=== PATIENT | female | born 1970 | race African-American/Black ===

== ENCOUNTER 2016-11-27 17:06 | Emergency (ER) | payer MEDICAID ==
[~2016-11-27] VITALS: Ht 165.1 cm; Wt 99.8 kg
[~2016-11-27 17:06] MED LIST: COUMADIN1 MG ORAL; HYDROCODON-ACE1 EA15 ORAL; LOSARTAN-HCTZ1 EAC2 ORAL; LOVENOX10 M3 SUBQ; NORVASC5 MG ORAL; OMEPRAZOLE20 M2 ORAL; VITAMIN D1000 UNI1 ORAL; ZOFRAN ODT4 MG ORAL
--- NOTE | 2016-11-27 17:28 | Emergency Room Report ---
History of Present Illness General Chief Complaint: Chest Pain Source: Patient Present Illness HPI 46YOF walk-in with 2 days "heavy" left sided chest pain. "Feels like my PE." Been compliant with lovenox injections since May 2016. Not on Coumadin. Known Protein C/s deficiencies with family with same. Denies fever/chills, cough, SOB, abd pain, nausea/vomiting, urinary complaints. Does not have IVC filter. CT May 2016: "Right main, right middle and lower lobe pulmonary emboli are seen. Subsegmental left lower lobe pulmonary emboli are also noted." Allergies: Coded Allergies: PENICILLINS (Verified Allergy, Unknown, 06/11/16) Patient History Past Medical History: HTN, other - PE, Protein C/s deficiency Past Surgical History: none Pertinent Family History: none Social History: Denies: alcohol use, drug use, smoking Now: No Immunizations: UTD Reviewed Nursing Documentation: PMH: Agreed, PSxH: Agreed Nursing Documentation-PMH Hx Cardiac Problems: Yes Hx Hypertension: Yes - Pulmonary embolism, Protein-S deficiency Hx Cancer: No Hx Gastrointestinal Problems: Yes Hx Neurological Problems: No Review of Systems All Other Systems: negative except mentioned in HPI Physical Exam Vital Signs Date Time Temp Pulse Resp B/P Pulse Ox O2 Delivery O2 Flow Rate FiO2 11/27/16 17:13 97.7 65 16 96/72 97 Room Air Sp02 EP Interpretation: reviewed, abnormal General Appearance: normal inspection, well appearing, no apparent distress, alert, GCS 15, non-toxic Head: normocephalic, atraumatic Eyes: bilateral eye EOMI, bilateral eye PERRL ENT: normal ENT inspection, hearing grossly normal, normal voice Neck: normal inspection, full range of motion, supple, no bony tend Respiratory: normal inspection, lungs clear, normal breath sounds, no respiratory distress, no retraction, no accessory muscle use, no wheezing, speaking full sentences Cardiovascular #1: regular rate, rhythm, no edema Gastrointestinal: normal inspection, normal bowel sounds, non tender, soft, no guarding, no hernia Genitourinary: no CVA tenderness Musculoskeletal: normal inspection, back normal, normal range of motion, Rigoberto' s Sign negative Neurologic: normal inspection, alert, oriented x3, responsive, 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 No right heart strain - Troponin 0. - PTT normal. Questionable compliance with Lovenox - CTA Chest pending at time of signout to Dr Dinh to followup at 7pm EKG Diagnostic Results Rate: normal, other - TWI in Lead 3 Rhythm: NSR ST Segments: no acute changes ASA given to the pt in ED: No Rhythm Strip Diag. Results EP Interpretation: yes Rate: 70 Rhythm: NSR, no PVC's, no ectopy Chest X-Ray Diagnostic Results EP Interpretation: Yes Findings: no consolidation, no effusion, no pneumothorax, no acute cardiopulmonary disease Number of Views: 1 Last Vital Signs Date Time Temp Pulse Resp B/P Pulse Ox O2 Delivery O2 Flow Rate FiO2 11/27/16 17:13 97.7 65 16 96/72 97 Room Air Status: improved Disposition: ADMITTED INPATIENT Condition: Serious JAXSON GIBSON M.D. Nov 27, 2016 17:28
[2016-11-27 17:52] LABS: BASOPHILS % (AUTO) 1.5 % (0.0-2.0); LYMPHOCYTES % (AUTO) 42.5 % (20.0-45.0); MEAN CORPUSCULAR HEMOGLOBIN 31.9 PG (27.0-31.0); MEAN CORPUSCULAR HGB CONC 35.8 G/DL (32.0-36.0); MEAN CORPUSCULAR VOLUME 89 FL (80-99); MEAN PLATELET VOLUME 5.3 FL (6.5-10.1); MONOCYTES % (AUTO) 3.6 % (1.0-10.0); NEUTROPHILS % (AUTO) 48.4 % (45.0-75.0); PLATELET COUNT 367 K/UL (150-450); RED BLOOD COUNT 3.91 M/UL (4.20-5.40); RED CELL DISTRIBUTION WIDTH 14.2 % (11.6-14.8)
[2016-11-27 18:02] LABS: ALANINE AMINOTRANSFERASE 11 U/L (3-33); ALBUMIN/GLOBULIN RATIO 1.2 (1.0-2.7); ANION GAP 13 (5-15); ASPARTATE AMINO TRANSFERASE 11 U/L (5-40); CALCIUM 9.3 mg/dL (8.6-10.2); CARBON DIOXIDE 24 mEQ/L (20-30); CHLORIDE 102 mEQ/L (98-107); GLOMERULAR FILTRATION RATE > 60 mL/min (>60); HEMOLYSIS 9; POTASSIUM 3.5 mEQ/L (3.4-4.9); SODIUM 139 mEQ/L (135-145); TROPONIN I < 0.30 ng/mL (<=0.30)
[2016-11-27 18:05] LABS: PROTHROMBIN TIME 10.1 SEC (9.30-11.50)
[2016-11-27 18:07] VITALS: BP 98/73
[2016-11-27 18:12] LABS: CKMB < 1.5 ng/mL (< 3.8)
[2016-11-27 19:17] VITALS: BP 111/71
[2016-11-27] MEDS ORDERED: NORCO 5-325 TA1 EACH ORAL (19:51)
[2016-11-27] MEDS ORDERED: Norco 5mg/325mg tab ORAL ONE (20:00)
[2016-11-27 20:03] VITALS: BP 104/76
[2016-11-27 20:04] VITALS: BP 104/76
--- NOTE | 2016-11-28 09:51 | Diagnostic Imaging Report ---
Indication: Chest pain Technique: Continuous helical transaxial imaging of the chest was obtained from the thoracic inlet to the upper abdomen during rapid intravenous contrast administration. Arterial phase of enhancement obtained. Coronal 2-D reformats were also obtained and maximum intensity projection images in multiple planes. Study obtained in a Siemens sensation [address] Total Dose length Product (DLP): [address] Dose Index Volume (CTDIvol): 12.6x2, 50.5, 30.9 mGy Comparison: None Findings: There is no evidence of pulmonary embolus, aortic dissection or aneurysm. The heart is unremarkable. Minimal pleural-based densities noted at both lung bases likely atelectasis. Visualized upper abdomen is unremarkable. Impression: Negative CTA chest The CT scanner at [facility] is accredited by the [employer] [place] [employer] and the scans are performed using dose optimization techniques as appropriate to a performed exam including Automatic Exposure control.
--- NOTE | 2016-11-28 11:45 | Diagnostic Imaging Report ---
Indication: Chest Pain Comparison: 06/18/16 A single view chest radiograph was obtained. Findings: No definite infiltrate or pulmonary vascular congestion identified. Lung volumes are low. The heart is enlarged. The aorta is mildly enlarged consistent with atherosclerotic vascular disease. The bones are osteopenic. Impression: No acute disease
--- NOTE | 2016-11-29 07:29 | Cardiology Report ---
APPROVED REPORT EKG Measurement Heart [id number] Normal sinus rhythm Cannot rule out Anterior infarct, age undetermined Abnormal ECG
== END 2016-11-27 20:05 | disposition home or self-care (01) ==
LOC: EMR 17:30 → EDBEDREQ 19:36 → CANBEDREQ 20:03 → EMR 20:05
DX: R07.1 Chest pain on breathing (principal); Z86.711 Personal history of pulmonary embolism; D68.59 Other primary thrombophilia; Z88.0 Allergy status to penicillin; I10 Essential (primary) hypertension
CPT/HCPCS: 36415; 71010; 71275; 80053; 80300; 81025; 82550; 82553; 84484; 85025; 85379; 85610; 85730; 93005; 99283; Q9967

== ENCOUNTER 2017-04-09 15:05 | Emergency (ER) | payer MEDICAID ==
[~2017-04-09] VITALS: Ht 165.1 cm; Wt 102.1 kg
[~2017-04-09 15:05] MED LIST changes: +NORCO 5-325 TA1 EACH ORAL
--- NOTE | 2017-04-09 15:25 | Emergency Room Report ---
History of Present Illness General Chief Complaint: Chest Pain Source: Patient Present Illness HPI 46YOF with 3 days of left sided upper chest pain, non-radiating. Worse with movement. Sharp. Reproducible. /10. Took Tylenol No cough, fever/chills, abd pain, nausea/vomiting. History of PE. On Lovenox. CT Chest negative in November 2016 Has been compliant with daily Lovenox injections - "missed 2 days" Had ECHO last month. Hasnt got results. Has cardiology followup in 5 days. Thinks she has mitral valve prolapse. Not on beta-ricci. Takes 3x meds for HTN Allergies: Coded Allergies: PENICILLINS (Verified Allergy, Unknown, 06/11/16) Patient History Past Medical History: HTN, other - PE Past Surgical History: none Pertinent Family History: none Social History: Denies: smoking, alcohol use, drug use Now: No Immunizations: UTD Reviewed Nursing Documentation: PMH: Agreed, PSxH: Agreed Nursing Documentation-PMH Past Medical History: No History, Except For Hx Cardiac Problems: Yes Hx Hypertension: Yes - Pulmonary embolism, Protein-S deficiency Hx Cancer: No Hx Gastrointestinal Problems: Yes Hx Neurological Problems: No Review of Systems All Other Systems: negative except mentioned in HPI Physical Exam Vital Signs Date Time Temp Pulse Resp B/P (MAP) Pulse Ox O2 Delivery O2 Flow Rate FiO2 04/09/17 15:11 99.0 79 20 103/71 100 Room Air Sp02 EP Interpretation: reviewed, normal General Appearance: normal inspection, well appearing, no apparent distress, alert Head: normocephalic, atraumatic Eyes: bilateral eye PERRL, bilateral eye EOMI ENT: normal ENT inspection, hearing grossly normal, normal voice Neck: normal inspection, full range of motion, supple, no bony tend Respiratory: normal inspection, lungs clear, normal breath sounds, no respiratory distress, no retraction, no wheezing, other - Chest pain reproducible mid/left sternum, chest symmetrical Cardiovascular #1: regular rate, rhythm, no edema Gastrointestinal: normal inspection, normal bowel sounds, non tender, soft, no guarding, no hernia Genitourinary: no CVA tenderness Musculoskeletal: normal inspection, back normal, normal range of motion, non- tender, no calf tenderness, pelvis stable, Rigoberto's Sign negative Neurologic: normal inspection, alert, responsive, speech normal Psychiatric: normal inspection, judgement/insight normal, mood/affect normal Skin: normal inspection, normal color, no rash Medical Decision Making Diagnostic Impression: Primary Impression: Chest pain Qualified Codes: R07.9 - Chest pain, unspecified ER Course Chest pain for 3 days VSS. Afebrile Not tachycardic or hypoxic ECG is NSR. No ischemia. No S1Q3T3 or right heart strain Labs: No leuks. H&H stable. Troponin <0.056. D-dimer is 900 - likely d/t known Protein S deficiency, chronic hypercoaguable state. Doubt PE given compliance with lovenox, pain is very reproducible and worse with movement, she is not hypoxic, she is well appearing, and not tachycardia/tachypnea. Has Cardiology followup in 5 days - possibly symptom related to MVP DC home EKG Diagnostic Results Rate: normal Rhythm: NSR ST Segments: no acute changes ASA given to the pt in ED: No Rhythm Strip Diag. Results EP Interpretation: yes Rate: 63 Rhythm: NSR, no ectopy Last Vital Signs Date Time Temp Pulse Resp B/P (MAP) Pulse Ox O2 Delivery O2 Flow Rate FiO2 04/09/17 15:11 99.0 79 20 103/71 100 Room Air Status: improved Disposition: HOME, SELF-CARE JAXSON GIBSON M.D. Apr 09, 2017 15:25
[2017-04-09 15:30] VITALS: BP 97/70
[2017-04-09] MEDS ORDERED: oxyCODONE HCL/Acetaminophen 5/325mg ORAL ONE (15:30)
[2017-04-09 16:07] LABS: BASOPHILS % (AUTO) 1.1 % (0.0-2.0); EOSINOPHILS % (AUTO) 2.9 % (0.0-3.0); LYMPHOCYTES % (AUTO) 43.1 % (20.0-45.0); MEAN CORPUSCULAR HEMOGLOBIN 30.5 PG (27.0-31.0); MEAN CORPUSCULAR HGB CONC 32.8 G/DL (32.0-36.0); MEAN CORPUSCULAR VOLUME 93 FL (80-99); MEAN PLATELET VOLUME 5.2 FL (6.5-10.1); MONOCYTES % (AUTO) 2.9 % (1.0-10.0); PLATELET COUNT 317 K/UL (150-450); RED BLOOD COUNT 4.18 M/UL (4.20-5.40); RED CELL DISTRIBUTION WIDTH 14.2 % (11.6-14.8); WHITE BLOOD COUNT 8.1 K/UL (4.8-10.8)
[2017-04-09 16:29] LABS: ALANINE AMINOTRANSFERASE 20 U/L (12-78); ANION GAP 10 (5-15); ASPARTATE AMINO TRANSFERASE 13 U/L (15-37); CALCIUM 9.2 MG/DL (8.5-10.1); CARBON DIOXIDE 27 MMOL/L (21-32); CHLORIDE 108 MMOL/L (98-107); CKMB 0.5 NG/ML (0.0-3.6); CREATININE 0.7 MG/DL (0.55-1.30); GLOMERULAR FILTRATION RATE > 60 mL/min (>60); POTASSIUM 3.8 MMOL/L (3.5-5.1); SODIUM 145 MMOL/L (136-145); TOTAL PROTEIN 6.3 G/DL (6.4-8.2)
[2017-04-09 16:32] VITALS: BP 112/77
[2017-04-09 17:56] VITALS: BP 118/70
--- NOTE | 2017-04-18 08:23 | Cardiology Report ---
APPROVED REPORT EKG Measurement Heart [id number] RI [id number] Normal sinus rhythm Low voltage QRS Cannot rule out Anterior infarct, age undetermined Abnormal ECG
== END 2017-04-09 17:58 | disposition home or self-care (01) ==
LOC: EMR 15:48
DX: R07.89 Other chest pain (principal); I10 Essential (primary) hypertension; Z86.711 Personal history of pulmonary embolism; Z88.0 Allergy status to penicillin
CPT/HCPCS: 36415; 80053; 82550; 82553; 84484; 85025; 85379; 93005; 99283

== ENCOUNTER 2018-10-11 19:18 | Emergency (ER) | payer MEDICAID ==
[~2018-10-11] VITALS: Ht 165.1 cm; Wt 97.5 kg
[2018-10-11 19:30] VITALS: BP 124/84
--- NOTE | 2018-10-11 19:30 | NUR ---
ED Nurse Note: Patient walked into ED c/o left calk swelling, patient states that it first started last night at around 2200, states that she does have a history of DVT. patient is alert and oriented x4, ambulatory with a steady gait, VSS. patient rates her pain a 7/10 pain.
[2018-10-11] MEDS: Acetaminophen 500mg (ES) tab ORAL ONE (20:03)
--- NOTE | 2018-10-11 20:05 | Emergency Room Report ---
History of Present Illness General Chief Complaint: Edema Source: Patient (Jonathan Dinh MD) Present Illness HPI Patient presents with left calf pain and swelling. She has history of DVT and pulmonary embolus. She's on Lovenox at home. She denies any chest pain or coughing up any blood. She's also had some vaginal bleeding. Not excessive or with clots, but unusual for her. Protein S deficiency. Failed Elaquis. Clinical Education Consultant placed on Lovenox. H/O anemia. Her last period before this recent bleeding was normal. No suprapubic pain or back pain. Patient has a goiter but states that her thyroid function tests are normal. No fevers, chills, palpitations, nausea, vomiting, diarrhea, dysuria, abdominal pain, shortness of breath, depression, visual changes, headache. H/O mitral valve prolapse. (Jonathan Dinh MD) Allergies: Coded Allergies: PENICILLINS (Verified Allergy, Unknown, 06/11/16) Patient History Past Medical History: see triage record Social History: Denies: smoking, alcohol use, drug use Social History Narrative single from home Last Menstrual Period: 09/30/18 Now: No Reviewed Nursing Documentation: PMH: Agreed; PSxH: Agreed (Jonathan Dinh MD) Nursing Documentation-PMH Hx Cardiac Problems: Yes - GERD, MITRAL VALVE PROLAPSE Hx Hypertension: Yes - Pulmonary embolism, Protein-S deficiency Hx Cancer: No Hx Gastrointestinal Problems: Yes Hx Neurological Problems: No (Jonathan Dinh MD) Review of Systems All Other Systems: negative except mentioned in HPI (Jonathan Dinh MD) Physical Exam Vital Signs Date Time Temp Pulse Resp B/P (MAP) Pulse Ox O2 Delivery O2 Flow Rate FiO2 10/11/18 19:27 98.4 98 12 124/84 97 Room Air Sp02 EP Interpretation: reviewed, normal General Appearance: well appearing, no apparent distress, GCS 15 Head: normocephalic, atraumatic Eyes: bilateral eye normal inspection, bilateral eye PERRL ENT: moist mucus membranes Neck: supple, other - goiter Respiratory: lungs clear, normal breath sounds Cardiovascular #1: regular rate, rhythm, other - click, edema - L leg Cardiovascular #2: 2+ radial (R) Gastrointestinal: normal inspection, normal bowel sounds, non tender, no mass, non-distended Genitourinary: no CVA tenderness, deferred - for ultrasound Musculoskeletal: back normal, gait/station normal, normal range of motion, calf tenderness, swelling - L leg Neurologic: alert, oriented x3, grossly normal Psychiatric: mood/affect normal Skin: normal inspection, warm/dry, pallor - minimal (Jonathan Dinh MD) Medical Decision Making Diagnostic Impression: Primary Impression: DVT (deep venous thrombosis) Qualified Codes: I82.432 - Acute embolism and thrombosis of left popliteal vein Additional Impressions: lovenox failure DUB (dysfunctional uterine bleeding) Fibroids Protein S deficiency Hypokalemia ER Course Patient presents with left calf tenderness and leg swelling with history of DVT. protein S deficiency and on Lovenox. Differential includes DVT, edema post DVT, calf strain amongst others. Exam is against pulmonary embolus at this time. Evaluation with EKG, chest x-ray and labs. She also complains about dysfunctional uterine bleeding and ultrasound is ordered. Also venous plethysmography is ordered for the left leg. Patient is treated with Tylenol. EKG without injury or strain. Chest x-ray no infiltrates. CBC with mild leukocytosis. CMP unremarkable except for low potassium. Activated PTT is normal. Urinalysis unremarkable. Potassium was given for low potassium orally. Venous plethysmography positive for acute DVT from the popliteal down to the calf. Pelvic ultrasound positive for fibroids. As DVT happened on Lovenox, needs IV heparin. Heparin ordered. Consideration for increased risk of bleeding with fibroids however risk of propagation of DVT greater risk. Patient signed out to Dr. Hough pending admission. Laboratory Tests Test 10/11/18 19:45 10/11/18 22:30 White Blood Count 11.2 K/UL (4.8-10.8) H Red Blood Count 4.06 M/UL (4.20-5.40) L Hemoglobin 12.2 G/DL (12.0-16.0) Hematocrit 36.4 % (37.0-47.0) L Mean Corpuscular Volume 90 FL (80-99) Mean Corpuscular Hemoglobin 30.0 PG (27.0-31.0) Mean Corpuscular Hemoglobin Concent 33.5 G/DL (32.0-36.0) Red Cell Distribution Width 12.9 % (11.6-14.8) Platelet Count 291 K/UL (150-450) Mean Platelet Volume 5.1 FL (6.5-10.1) L Neutrophils (%) (Auto) 65.3 % (45.0-75.0) Lymphocytes (%) (Auto) 25.7 % (20.0-45.0) Monocytes (%) (Auto) 5.9 % (1.0-10.0) Eosinophils (%) (Auto) 1.9 % (0.0-3.0) Basophils (%) (Auto) 1.2 % (0.0-2.0) Prothrombin Time 11.1 SEC (9.30-11.50) Prothrombin Time INR 1.1 (0.9-1.1) PTT 29 SEC (23-33) Sodium Level 142 MMOL/L (136-145) Potassium Level 2.9 MMOL/L (3.5-5.1) L Chloride Level 103 MMOL/L (98-107) Carbon Dioxide Level 28 MMOL/L (21-32) Anion Gap 11 mmol/L (5-15) Blood Urea Nitrogen 16 mg/dL (7-18) Creatinine 0.8 MG/DL (0.55-1.30) Estimate Glomerular Filtration Rate > 60 mL/min (>60) Glucose Level 81 MG/DL (74-106) Calcium Level 9.1 MG/DL (8.5-10.1) Total Bilirubin 0.4 MG/DL (0.2-1.0) Aspartate Amino Transferase (AST) 15 U/L (15-37) Alanine Aminotransferase (ALT) 24 U/L (12-78) Alkaline Phosphatase 68 U/L (46-116) Total Creatine Kinase 148 U/L (26-308) Troponin I 0.007 ng/mL (0.000-0.056) Pro-B-Type Natriuretic Peptide 29 pg/mL (0-125) Total Protein 7.2 G/DL (6.4-8.2) Albumin 3.1 G/DL (3.4-5.0) L Globulin 4.1 g/dL Albumin/Globulin Ratio 0.8 (1.0-2.7) L Urine Color Pale yellow Urine Appearance Clear Urine pH 7 (4.5-8.0) Urine Specific [place] 1.005 (1.005-1.035) Urine Protein 2+ (NEGATIVE) H Urine Glucose (UA) Negative (NEGATIVE) Urine Ketones Negative (NEGATIVE) Urine Blood 5+ (NEGATIVE) H Urine Nitrite Negative (NEGATIVE) Urine Bilirubin Negative (NEGATIVE) Urine Urobilinogen Normal MG/DL (0.0-1.0) Urine Leukocyte Esterase 2+ (NEGATIVE) H Urine RBC 2-4 /HPF (0 - 2) H Urine WBC 2-4 /HPF (0 - 2) Urine Squamous Epithelial Cells Few /LPF (NONE/OCC) Urine Bacteria Few /HPF (NONE) Urine Yeast Few /HPF (NONE) H Urine HCG, Qualitative Negative (NEGATIVE) (Jonathan Dinh MD) ER Course Patient signout to me. She is pending admission versus transfer. I discussed the case with Dr. Kessler who said that her for transfer to [facility]. Patient is stable. (Carlton Hough MD) EKG Diagnostic Results Rate: normal Rhythm: NSR ST Segments: no acute changes (Jonathan Dinh MD) Rhythm Strip Diag. Results EP Interpretation: yes Rhythm: NSR, no PVC's, no ectopy (Jonathan Dinh MD) Chest X-Ray Diagnostic Results Chest X-Ray Diagnostic Results : Chest X-Ray Ordered: Yes # of Views/Limited/Complete: 1 View Indication: Other EP Interpretation: Yes Interpretation: no consolidation, no effusion, no pneumothorax Impression: No acute disease Electronically Signed by: Electronically signed by Jonathan Dinh MD (Jonathan Dinh MD) CT/MRI/US Diagnostic Results CT/MRI/US Diagnostic Results #1: Imaging Test Ordered: pelvic u/s Impression Multiple fibroids CT/MRI/US Diagnostic Results #2: Imaging Test Ordered: Venous duplex left leg Impression Clot from popliteal extending downwards (Jonathan Dinh MD) Last Vital Signs Date Time Temp Pulse Resp B/P (MAP) Pulse Ox O2 Delivery O2 Flow Rate FiO2 10/11/18 22:56 98.4 80 12 132/80 97 Room Air Status: improved (Jonathan Dinh MD) Disposition: XFER SHT-TRM HOSP Condition: Serious - but stable for transfer Jonathan Dinh MD Oct 11, 2018 20:05 Carlton Hough MD Oct 11, 2018 23:43
--- NOTE | 2018-10-11 20:13 | NUR ---
ED Nurse Note: Patient went down to ultrasound
[2018-10-11 20:28] LABS: ANION GAP 11 mmol/L (5-15); BASOPHILS % (AUTO) 1.2 % (0.0-2.0); BLOOD UREA NITROGEN 16 mg/dL (7-18); CALCIUM 9.1 MG/DL (8.5-10.1); CARBON DIOXIDE 28 MMOL/L (21-32); CHLORIDE 103 MMOL/L (98-107); CREATININE 0.8 MG/DL (0.55-1.30); EOSINOPHILS % (AUTO) 1.9 % (0.0-3.0); HEMATOCRIT 36.4 % (37.0-47.0); HEMOGLOBIN 12.2 G/DL (12.0-16.0); LYMPHOCYTES % (AUTO) 25.7 % (20.0-45.0); MEAN CORPUSCULAR VOLUME 90 FL (80-99); MONOCYTES % (AUTO) 5.9 % (1.0-10.0); NEUTROPHILS % (AUTO) 65.3 % (45.0-75.0); PLATELET COUNT 291 K/UL (150-450); POTASSIUM 2.9 MMOL/L (3.5-5.1); RED BLOOD COUNT 4.06 M/UL (4.20-5.40); RED CELL DISTRIBUTION WIDTH 12.9 % (11.6-14.8); SODIUM 142 MMOL/L (136-145); WHITE BLOOD COUNT 11.2 K/UL (4.8-10.8)
[2018-10-11 20:32] LABS: INR 1.1 (0.9-1.1)
[2018-10-11 20:40] LABS: ALANINE AMINOTRANSFERASE 24 U/L (12-78); ALBUMIN 3.1 G/DL (3.4-5.0); ALBUMIN/GLOBULIN RATIO 0.8 (1.0-2.7); ALKALINE PHOSPHATASE 68 U/L (46-116); ASPARTATE AMINO TRANSFERASE 15 U/L (15-37); BILIRUBIN,TOTAL 0.4 MG/DL (0.2-1.0); CREATINE KINASE 148 U/L (26-308)
--- NOTE | 2018-10-11 21:42 | NUR ---
ED Nurse Note: Patient has came back from ultrasound
[2018-10-11] MEDS ORDERED: Zolpidem 5mg tab ORAL PRN (22:00)
[2018-10-11] MEDS ORDERED: Morphine Sulfate 2mg/ml Inj(IV/IM USE ONLY) IVP PRN (22:00)
[2018-10-11] MEDS ORDERED: Mylanta II UD 30ml ORAL PRN (22:00)
[2018-10-11] MEDS: Heparin 25,000u/D5W 500ml 500 ML IV SCH ×2 (22:00→22:26)
[2018-10-11] MEDS ORDERED: LORazepam Inj 2mg/ml 1ml IV PRN (22:00)
[2018-10-11] MEDS ORDERED: Miralax 17gm pkt ORAL PRN (22:00)
[2018-10-11] MEDS: Heparin 5000 units/ml inj IV ONE (22:24)
[2018-10-11 22:56] VITALS: BP 132/80
[2018-10-11 22:59] LABS: APPEARANCE,URINE CLEAR; BILIRUBIN, URINE NEGATIVE (NEGATIVE); COLOR,URINE PALE YELLOW; GLUCOSE, URINE (UA) NEGATIVE (NEGATIVE); KETONES,URINE NEGATIVE (NEGATIVE); LEUKOCYTE ESTERASE ,URINE 2+ (NEGATIVE); NITRITE,URINE NEGATIVE (NEGATIVE); PH,URINE 7 (4.5-8.0); PROTEIN,URINE 2+ (NEGATIVE); UROBILINOGEN,URINE NORMAL MG/DL (0.0-1.0)
--- NOTE | 2018-10-11 23:30 | NUR ---
ED Nurse Note: Patient reports of no distress at this time
[2018-10-12 00:59] VITALS: BP 112/83
--- NOTE | 2018-10-12 02:34 | NUR ---
ED Nurse Note: Per Dr. Hough, pt is ok to have Heparin gtt stopped for transport.
[2018-10-12 02:41] VITALS: BP 124/84
--- NOTE | 2018-10-12 02:42 | NUR ---
ED Nurse Note: Patient is being transferred to [facility], at this time patient reports no distress. Patient is accompanied by BLS personnel.
[2018-10-12 02:48] VITALS: BP 124/84
--- NOTE | 2018-10-12 08:45 | Diagnostic Imaging Report ---
Indication:Leg pain and swelling Technique: Grayscale and duplex Doppler imaging of the veins in left lower extremity performed in real time utilizing compression and augmentation. Comparison: None Findings: Duplex Doppler interrogation of the veins in left lower extremity is performed from the common femoral vein to the popliteal vein. Left calf veins also assessed. There is echogenic thrombus with lack of compressibility in the left popliteal vein and left posterior tibial vein and anterior tibial vein. Is portions of the left common femoral and femoral veins are without evidence of thrombus. There is normal compression and color flow in these veins. Note that the right lower extremity was not imaged. IMPRESSION: Left lower extremity ultrasound demonstrates: Evidence of DVT in the left popliteal vein and calf veins. This corresponds with the preliminary report by the overnight radiologist. Positive findings were communicated to the treating ER physician, as documented in the preliminary report generated by the cardiovascular technologist.
--- NOTE | 2018-10-12 09:10 | Diagnostic Imaging Report ---
Indication: Pelvic pain and vaginal bleeding. Reported negative test Technique: Transabdominal and endovaginal pelvic ultrasound was performed. Findings: Imaged portions of the urinary bladder are unremarkable in appearance. Multiple heterogeneous masses are noted within the myometrium. These may represent fibroids. The largest measures approximately 5.3 cm. Some anechoic structures are noted within the cervix which may represent nabothian cysts. The endometrium is thickened and heterogeneous measuring proximally 1.8 mm in diameter. The right ovary is only visualized on transabdominal scan. He measures approximately 3.6 x 2.3 cm. Doppler flow in the right ovary is demonstrated. The the left ovary measures approximately 2.7 x 3 x 1.2 cm. Blood flow in the left ovary is documented. IMPRESSION: Multiple heterogeneous uterine masses most likely representing fibroids. Largest measures up to 5.3 cm. Heterogeneous and thickened endometrium. Thickening is greater than expected for physiologic thickening. The possibility of an endometrial lesion cannot be excluded, especially given history of abnormal bleeding. 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 Doppler flow noted in the bilateral ovaries. This is discrepant from the preliminary interpretation of the overnight radiologist. The patient has been transferred to [facility] in the interim. Per [facility] emergency room, patient under care of Dr. Kline at [facility]. Report discrepancy discussed with the patient's nurse at [facility] morning of 10/12/2018 at [phone]. Attempting to contact the covering physician.
--- NOTE | 2018-10-12 12:46 | Diagnostic Imaging Report ---
Indication: Status post pain Technique: XRAY Chest 1v Comparison: 11/27/2016 Findings: Heart size and mediastinal contours are within normal limits for AP technique. There is no focal consolidation, pneumothorax or pleural effusion. Osseous structures demonstrate no acute abnormality. Impression: No radiographic evidence of acute cardiopulmonary disease.
--- NOTE | 2018-10-12 13:30 | Cardiology Report ---
APPROVED REPORT EKG Measurement Heart [id number] [place] [id number] Normal sinus rhythm Normal ECG
== END 2018-10-12 02:49 | disposition short-term general hospital (02) ==
LOC: EMR 20:00
DX: I82.432 Acute embolism and thrombosis of left popliteal vein (principal); I82.4Z2 Acute embolism and thrombosis of unspecified deep veins of left distal lower extremity; K21.9 Gastro-esophageal reflux disease without esophagitis; D68.59 Other primary thrombophilia; Z86.711 Personal history of pulmonary embolism; Z79.01 Long term (current) use of anticoagulants; Z88.0 Allergy status to penicillin
CPT/HCPCS: 36415; 71045; 76830; 76856; 80053; 81003; 81025; 82550; 83880; 84484; 85025; 85610; 85730; 87086; 93005; 93970; 99285; J1644; J8499

== ENCOUNTER 2019-08-26 15:30 | Emergency (ER) | payer MEDICAID ==
[~2019-08-26] VITALS: Ht 165.1 cm; Wt 99.8 kg
[2019-08-26 15:40] VITALS: BP 105/78
--- NOTE | 2019-08-26 15:40 | NUR ---
ED Nurse Note: Pt ambulated to ED d/t LT leg pain s/p DVT. Per triage, pt was diagnosed on at [facility]. Pt is AOx4, VSS, on RA. Placed on bed and gown; will continue to monitor.
[2019-08-26] MEDS ORDERED: Morphine Sulfate 2mg/ml Inj(IV/IM USE ONLY) IVP ONE (16:15)
[2019-08-26] MEDS ORDERED: Heparin 25,000u/D5W 500ml 500 ML IV SCH (16:30)
[2019-08-26] MEDS ORDERED: Heparin 5000 units/ml inj IV ONE (16:30)
--- NOTE | 2019-08-26 16:50 | Emergency Room Report ---
History of Present Illness General Chief Complaint: General Complaint Source: Patient Present Illness HPI 49-year-old female with history of protein S deficiency as well as multiple DVTs currently under the care of casino investigator and taking 100 mg of IM Lovenox twice daily here complaining of worsening leg pain x2 days. Patient reports that she was at [facility] this past and was diagnosed with a new onset left leg however was discharged and told to go home and her daily dose of Lovenox. Started worse this morning patient contacted her casino investigator patient emergency room to get admitted drip. Denies any chest pain, shortness of breath, palpitation, headache or dizziness. Denies any pleuritic chest pain. Reports that she had embolism in 1999 does not have any active symptoms are now. Rates the pain in the left lower extremity 10 out of 10 without radiation. Denies tingling and numbness. Denies at this time. Allergies: Coded Allergies: PENICILLINS (Verified Allergy, Unknown, 06/11/16) Patient History Past Medical History: see triage record Past Surgical History: none Pertinent Family History: none Now: No Immunizations: UTD Reviewed Nursing Documentation: PMH: Agreed; PSxH: Agreed Nursing Documentation-PMH Past Medical History: No History, Except For Hx Hypertension: Yes - GERD Hx Cancer: No Hx Gastrointestinal Problems: Yes Hx Neurological Problems: No Review of Systems All Other Systems: negative except mentioned in HPI Physical Exam Vital Signs Date Time Temp Pulse Resp B/P (MAP) Pulse Ox O2 Delivery O2 Flow Rate FiO2 08/26/19 15:33 98.6 93 16 105/78 (87) 100 Room Air Sp02 EP Interpretation: reviewed, normal General Appearance: no apparent distress, alert, GCS 15, non-toxic Head: normocephalic, atraumatic Eyes: bilateral eye normal inspection, bilateral eye PERRL ENT: hearing grossly normal, normal pharynx, no angioedema, normal voice Neck: full range of motion, supple, thyroid normal, no meningismus, supple/symm /no masses Respiratory: chest non-tender, lungs clear, normal breath sounds, no rhonchi, no retraction, no wheezing, speaking full sentences Cardiovascular #1: regular rate, rhythm, no edema, no murmur Cardiovascular #2: 2+ carotid (R), 2+ carotid (L), 2+ radial (R), 2+ radial (L) , 2+ femoral (R), 2+ femoral (L), 2+ dorsalis pedis (R), 2+ dorsalis pedis (L) Gastrointestinal: normal bowel sounds, non tender, soft, non-distended, no guarding, no rebound Genitourinary: normal inspection, no CVA tenderness Musculoskeletal: back normal, no calf tenderness, pelvis stable, gait/station normal, Rigoberto's Sign negative Neurologic: alert, motor strength/tone normal, oriented x3, sensory intact, responsive, speech normal Psychiatric: judgement/insight normal, memory normal, mood/affect normal, no suicidal/homicidal ideation Skin: no rash, normal color Lymphatic: no adenopathy Medical Decision Making PA Attestation All my diagnosis and treatment plans were reviewed ad discussed with my supervising physician Dr. Byers Diagnostic Impression: Primary Impression: DVT (deep venous thrombosis) ER Course 49-year-old female with history of protein S deficiency as well as multiple DVTs currently under the care of casino investigator and taking 100 mg of IM Lovenox twice daily here complaining of worsening leg pain x2 days. Patient reports that she was at [facility] this past and was diagnosed with a new onset left leg however was discharged and told to go home and her daily dose of Lovenox. Started worse this morning patient contacted her casino investigator patient emergency room to get admitted drip. Denies any chest pain, shortness of breath, palpitation, headache or dizziness. Denies any pleuritic chest pain. Reports that she had embolism in 1999 does not have any active symptoms are now. Rates the pain in the left lower extremity 10 out of 10 without radiation. Denies tingling and numbness. Denies at this time. Ddx considered but are not limited to : Cellulitis, DVT, pulmonary embolism, superficial infection, abscess Vital signs: are WNL, pt. is afebrile H&PE are most consistent with: DVT ORDERS: CBC, CMP, UA, PT and PTT, type and screen, troponin, EKG, chest x-ray, venous duplex ultrasound of left lower extremity ED INTERVENTIONS: Heparin drip, morphine, Zofran, NS bolus Patient was admitted with diagnosis of DVT to Dr. Agudelo at [facility] under supervision of Dr.: Byers pt stable at time of admission Dr. Kyler Kim, patient's casino investigator was contacted by my supervising physician Dr. Byers and patient to be admitted under heparin drip for transition from Lovenox to the newer agents. EKG Diagnostic Results Rate: normal Rhythm: NSR ST Segments: no acute changes Other Impression No acute ST changes Chest X-Ray Diagnostic Results Chest X-Ray Diagnostic Results : Chest X-Ray Ordered: Yes # of Views/Limited/Complete: 1 View Indication: Other EP Interpretation: Yes PA Xray: Interpretation reviewed, by supervising MD, and agrees with findings. Interpretation: no consolidation, no effusion, no pneumothorax Impression: No acute disease Electronically Signed by: Mikael Salazar PA-C Last Vital Signs Date Time Temp Pulse Resp B/P (MAP) Pulse Ox O2 Delivery O2 Flow Rate FiO2 // 15:33 98.6 93 16 105/78 (87) 100 Room Air Status: improved Disposition: XFER SHT-TRM HOSP Condition: Stable Referrals: NON PHYSICIAN (PCP) Mikael Cuadra Aug 26, 2019 16:50
--- NOTE | 2019-08-26 16:53 | NUR ---
ED Nurse Note: X-ray at bedside.
[2019-08-26 16:59] LABS: BASOPHILS % (AUTO) 1.6 % (0.0-2.0); EOSINOPHILS % (AUTO) 5.2 % (0.0-3.0); HEMOGLOBIN 11.9 G/DL (12.0-16.0); LYMPHOCYTES % (AUTO) 42.8 % (20.0-45.0); MEAN CORPUSCULAR VOLUME 87 FL (80-99); NEUTROPHILS % (AUTO) 44.4 % (45.0-75.0); PLATELET COUNT 437 K/UL (150-450); RED BLOOD COUNT 4.25 M/UL (4.20-5.40); RED CELL DISTRIBUTION WIDTH 18.7 % (11.6-14.8); WHITE BLOOD COUNT 11.8 K/UL (4.8-10.8)
--- NOTE | 2019-08-26 16:59 | Diagnostic Imaging Report ---
Indication: Left lower extremity pain and swelling. Technique: Duplex Doppler imaging performed from the left common femoral vein to the popliteal vein. FINDINGS: There is acute thrombus noted in the left superficial femoral vein and popliteal vein. There is flow in the common femoral vein. In the right leg, normal compressibility demonstrated from the common femoral vein to the popliteal vein. Respiratory phasicity and good augmentation demonstrated on waveform analysis. There is no evidence of thrombosis. IMPRESSION: Positive study showing acute thrombosis of the left femoral and popliteal vein. The emergency department physician teachers' assistant Mikael was informed at 16:35
[2019-08-26 17:05] LABS: ANION GAP 15 mmol/L (5-15); BLOOD UREA NITROGEN 8 mg/dL (7-18); CALCIUM 9.7 MG/DL (8.5-10.1); CARBON DIOXIDE 26 MMOL/L (21-32); CHLORIDE 105 MMOL/L (98-107); CREATININE 0.8 MG/DL (0.55-1.30); POTASSIUM 3.4 MMOL/L (3.5-5.1); SODIUM 145 MMOL/L (136-145)
[2019-08-26 17:17] LABS: ALANINE AMINOTRANSFERASE 24 U/L (12-78); ALBUMIN 3.1 G/DL (3.4-5.0); ALBUMIN/GLOBULIN RATIO 0.7 (1.0-2.7); ALKALINE PHOSPHATASE 73 U/L (46-116); ASPARTATE AMINO TRANSFERASE 14 U/L (15-37); BILIRUBIN,TOTAL 0.3 MG/DL (0.2-1.0)
[2019-08-26 18:42] VITALS: BP 105/75
--- NOTE | 2019-08-26 18:50 | NUR ---
ED Nurse Note: Discontinued IV heparin drip per Dr. yBers.
[2019-08-26 19:00] VITALS: BP 107/75
--- NOTE | 2019-08-26 19:27 | NUR ---
ED Nurse Note: Gave report LEANDRA Rosario
--- NOTE | 2019-08-27 12:37 | Diagnostic Imaging Report ---
Indication: Chest pain Comparison: 10/11/2018 A single view chest radiograph was obtained. Findings: Cardiomediastinal appearance is within normal limits for age. The lungs are clear. Pulmonary vascularity is appropriate. The diaphragmatic contour is smooth and costophrenic angles are sharp. No pleural effusions are identified. The bones are unremarkable. Impression: No acute findings
== END 2019-08-26 19:30 | disposition home or self-care (01) ==
LOC: EMR 15:45
DX: I82.402 Acute embolism and thrombosis of unspecified deep veins of left lower extremity (principal); I10 Essential (primary) hypertension; K21.9 Gastro-esophageal reflux disease without esophagitis; Z88.0 Allergy status to penicillin
CPT/HCPCS: 36415; 71045; 80053; 83880; 84484; 85025; 85610; 85730; 86850; 86900; 86901; 93005; 93971; 96361; 96374; 96375; J1644; J2270; J2405; J7030; Z7502; 99284

== ENCOUNTER 2019-12-19 11:46 | Inpatient (IN) | payer MEDICAID ==
[~2019-12-19] VITALS: Ht 165.1 cm; Wt 102.1 kg
[2019-12-19] MEDS ORDERED: XARELTO10 MG ORAL (11:53)
[2019-12-19] MEDS ORDERED: Omnipaque-300 100ml vial INJ ONE (12:00)
--- NOTE | 2019-12-19 12:10 | NUR ---
ED Nurse Note: Pt ambulated to ED from home d/t RT sided chest pain, non radiating, with 8/10 scale. Pt is AOx4, calm and cooperative. Per report, pt has hx of pulmonary embolism and dvt. Placed on bed and gown; hooked to bus monitor, VSS, on RA, afebrile on triage.
--- NOTE | 2019-12-19 12:11 | Emergency Room Report ---
History of Present Illness General Chief Complaint: Chest Pain Source: Patient (Jamil Maloney MD) Present Illness HPI 49-year-old female history of pulmonary embolism presents with right-sided chest pain similar to her previous pulmonary embolism, started yesterday noticed it more around 8 AM pain has been pressure-like constant no aggravating or alleviating factors severity is moderate, patient also notices some shortness of breath no dyspnea on exertion no diaphoresis no nausea no vomiting no abdominal pain patient presents for treatment (Jamil Maloney MD) Allergies: Coded Allergies: PENICILLINS (Verified Allergy, Unknown, 06/11/16) COVID-19 Screening Contact w/high risk pt: No Recent Travel to affected area: No Experienced COVID-19 symptoms?: No COVID-19 Testing performed HEALTH TYPE TECHNICIAN: No (Jamil Maloney MD) Patient History Past Medical History: see triage record Last Menstrual Period: unknown Now: No Reviewed Nursing Documentation: PMH: Agreed; PSxH: Agreed (Jamil Maloney MD) Nursing Documentation-PMH Past Medical History: No History, Except For Hx Hypertension: Yes - GERD Hx Cancer: No Hx Gastrointestinal Problems: Yes Hx Neurological Problems: No (Jamil Maloney MD) Review of Systems All Other Systems: negative except mentioned in HPI (Jamil Maloney MD) Physical Exam Vital Signs Date Time Temp Pulse Resp B/P (MAP) Pulse Ox O2 Delivery O2 Flow Rate FiO2 12/19/19 11:49 98.1 98 18 129/78 (95) 98 Room Air Sp02 EP Interpretation: reviewed, normal General Appearance: well appearing, no apparent distress, alert Head: normocephalic, atraumatic Eyes: bilateral eye PERRL, bilateral eye EOMI ENT: uvula midline, moist mucus membranes Neck: supple, thyroid normal, supple/symm/no masses Respiratory: lungs clear, no respiratory distress, no retraction, no accessory muscle use Cardiovascular #1: normal peripheral pulses, regular rate, rhythm, no edema, no gallop, no murmur Gastrointestinal: non tender, soft, no guarding, no rebound Musculoskeletal: normal inspection Neurologic: alert, oriented x3 Psychiatric: mood/affect normal Skin: no rash, warm/dry (Jamil Maloney MD) Medical Decision Making Diagnostic Impression: Primary Impression: Chest pain Qualified Codes: R07.9 - Chest pain, unspecified ER Course 49-year-old female presents with chest pain differential diagnosis includes ACS PE Chest x-ray negative, EKG negative, pending CTA patient signed out to Dr. Moscoso Laboratory Tests Test 12/19/19 12:00 White Blood Count 9.3 K/UL (4.8-10.8) Red Blood Count 4.77 M/UL (4.20-5.40) Hemoglobin 13.7 G/DL (12.0-16.0) Hematocrit 42.9 % (37.0-47.0) Mean Corpuscular Volume 90 FL (80-99) Mean Corpuscular Hemoglobin 28.8 PG (27.0-31.0) Mean Corpuscular Hemoglobin Concent 32.0 G/DL (32.0-36.0) Red Cell Distribution Width 15.8 % (11.6-14.8) H Platelet Count 399 K/UL (150-450) Mean Platelet Volume 5.8 FL (6.5-10.1) L Neutrophils (%) (Auto) 50.6 % (45.0-75.0) Lymphocytes (%) (Auto) 42.3 % (20.0-45.0) Monocytes (%) (Auto) 3.7 % (1.0-10.0) Eosinophils (%) (Auto) 2.0 % (0.0-3.0) Basophils (%) (Auto) 1.5 % (0.0-2.0) Prothrombin Time 11.7 SEC (9.30-11.50) H Prothrombin Time INR 1.1 (0.9-1.1) Activated Partial Thromboplast Time 30 SEC (23-33) Urine HCG, Qualitative Negative (NEGATIVE) Sodium Level 139 MMOL/L (136-145) Potassium Level 3.2 MMOL/L (3.5-5.1) L Chloride Level 102 MMOL/L (98-107) Carbon Dioxide Level 28 MMOL/L (21-32) Anion Gap 9 mmol/L (5-15) Blood Urea Nitrogen 10 mg/dL (7-18) Creatinine 0.8 MG/DL (0.55-1.30) Estimated Glomerular Filtration Rate > 60 mL/min (>60) Glucose Level 88 MG/DL (74-106) Calcium Level 9.3 MG/DL (8.5-10.1) Total Bilirubin 0.4 MG/DL (0.2-1.0) Aspartate Amino Transferase (AST) 17 U/L (15-37) Alanine Aminotransferase (ALT) 19 U/L (12-78) Alkaline Phosphatase 74 U/L (46-116) Troponin I 0.000 ng/mL (0.000-0.056) Pro-B-Type Natriuretic Peptide 10 pg/mL (0-125) Total Protein 7.5 G/DL (6.4-8.2) Albumin 3.2 G/DL (3.4-5.0) L Globulin 4.3 g/dL Albumin/Globulin Ratio 0.7 (1.0-2.7) L Lipase 296 U/L (73-393) Human Chorionic Gonadotropin, Quant 1 mIU/mL (1-6) (Jamil Maloney MD) ER Course Assumed care of the patient from previous provider approximately 1400 hrs. Briefly this a 49-year-old female with a past history of emboli currently on rivaroxaban presenting for right-sided chest pain and shortness of breath. At the time of signout we are awaiting CTA. Study does not show any large central emboli but cannot risk include small peripheral ones. Vital signs are stable. Labs are otherwise within normal limits including a negative troponin. Updated Dr. Magallon from [facility]. Patient will be transferred to [place] per her insurance plan. She is stable for transfer. 1800: No beds available at [place]. Patient will be admitted to our facility for ACS rule out. Admitted to panel physician, Dr. Jimenez. Aspirin, nitroglycerin, Toradol given. Laboratory Tests Test 12/19/19 12:00 White Blood Count 9.3 K/UL (4.8-10.8) Red Blood Count 4.77 M/UL (4.20-5.40) Hemoglobin 13.7 G/DL (12.0-16.0) Hematocrit 42.9 % (37.0-47.0) Mean Corpuscular Volume 90 FL (80-99) Mean Corpuscular Hemoglobin 28.8 PG (27.0-31.0) Mean Corpuscular Hemoglobin Concent 32.0 G/DL (32.0-36.0) Red Cell Distribution Width 15.8 % (11.6-14.8) H Platelet Count 399 K/UL (150-450) Mean Platelet Volume 5.8 FL (6.5-10.1) L Neutrophils (%) (Auto) 50.6 % (45.0-75.0) Lymphocytes (%) (Auto) 42.3 % (20.0-45.0) Monocytes (%) (Auto) 3.7 % (1.0-10.0) Eosinophils (%) (Auto) 2.0 % (0.0-3.0) Basophils (%) (Auto) 1.5 % (0.0-2.0) Prothrombin Time 11.7 SEC (9.30-11.50) H Prothrombin Time INR 1.1 (0.9-1.1) Activated Partial Thromboplast Time 30 SEC (23-33) Urine HCG, Qualitative Negative (NEGATIVE) Sodium Level 139 MMOL/L (136-145) Potassium Level 3.2 MMOL/L (3.5-5.1) L Chloride Level 102 MMOL/L (98-107) Carbon Dioxide Level 28 MMOL/L (21-32) Anion Gap 9 mmol/L (5-15) Blood Urea Nitrogen 10 mg/dL (7-18) Creatinine 0.8 MG/DL (0.55-1.30) Estimated Glomerular Filtration Rate > 60 mL/min (>60) Glucose Level 88 MG/DL (74-106) Calcium Level 9.3 MG/DL (8.5-10.1) Total Bilirubin 0.4 MG/DL (0.2-1.0) Aspartate Amino Transferase (AST) 17 U/L (15-37) Alanine Aminotransferase (ALT) 19 U/L (12-78) Alkaline Phosphatase 74 U/L (46-116) Troponin I 0.000 ng/mL (0.000-0.056) Pro-B-Type Natriuretic Peptide 10 pg/mL (0-125) Total Protein 7.5 G/DL (6.4-8.2) Albumin 3.2 G/DL (3.4-5.0) L Globulin 4.3 g/dL Albumin/Globulin Ratio 0.7 (1.0-2.7) L Lipase 296 U/L (73-393) Human Chorionic Gonadotropin, Quant 1 mIU/mL (1-6) (Hemant Moscoso MD) EKG Diagnostic Results EKG Time: 11:55 EP Interpretation: NSR, rate 86 QTc 461, no acute ST elevations, left axis deviation (Jamil Maloney MD) Rhythm Strip Diag. Results Rhythm Strip Time: 12:11 EP Interpretation: yes Rate: 88 Rhythm: NSR, no PVC's, no ectopy (Jamil Maloney MD) Chest X-Ray Diagnostic Results Chest X-Ray Diagnostic Results : Chest X-Ray Ordered: Yes Indication: Chest Pain EP Interpretation: Yes Interpretation: no consolidation, no effusion, no pneumothorax, no acute cardiopulmonary disease Impression: No acute disease Electronically Signed by: Jamil Maloney MD (Jamil Maloney MD) CT/MRI/US Diagnostic Results CT/MRI/US Diagnostic Results : Impression IMPRESSION: ONLY MARGINAL OPACIFICATION OF THE PULMONARY VASCULARITY. NO LARGE CENTRAL EMBOLISM IDENTIFIED BUT SMALL PERIPHERAL EMBOLI CANNOT BE EXCLUDED. Dictated By: Franco Munroe MD Electronically Signed By: Franco Munroe MD Signed Date/Time 12/19/19 9160 CC: Jamil Maloney MD (Hemant Moscoso MD) Last Vital Signs Date Time Temp Pulse Resp B/P (MAP) Pulse Ox O2 Delivery O2 Flow Rate FiO2 12/19/19 11:49 98.1 98 18 129/78 (95) 98 Room Air (Jamil Maloney MD) Disposition: ADMITTED INPATIENT Condition: Stable Jamil Maloney MD Dec 19, 2019 12:11 Hemant Moscoso MD Dec 19, 2019 15:08
--- NOTE | 2019-12-19 12:11 | NUR ---
ED Nurse Note: x-ray at bedside.
--- NOTE | 2019-12-19 12:12 | NUR ---
ED Nurse Note: per pt, chest pain is on and off started since yesterday.
[2019-12-19] MEDS ORDERED: Omnipaque 350 100ml vial INJ PRN (12:15)
[2019-12-19 12:24] VITALS: BP 129/78
[2019-12-19 12:27] LABS: BASOPHILS % (AUTO) 1.5 % (0.0-2.0); HEMATOCRIT 42.9 % (37.0-47.0); HEMOGLOBIN 13.7 G/DL (12.0-16.0); LYMPHOCYTES % (AUTO) 42.3 % (20.0-45.0); MEAN CORPUSCULAR VOLUME 90 FL (80-99); MONOCYTES % (AUTO) 3.7 % (1.0-10.0); NEUTROPHILS % (AUTO) 50.6 % (45.0-75.0); PLATELET COUNT 399 K/UL (150-450); RED BLOOD COUNT 4.77 M/UL (4.20-5.40); RED CELL DISTRIBUTION WIDTH 15.8 % (11.6-14.8); WHITE BLOOD COUNT 9.3 K/UL (4.8-10.8)
[2019-12-19 12:38] LABS: INR 1.1 (0.9-1.1)
[2019-12-19 12:39] LABS: ANION GAP 9 mmol/L (5-15); BLOOD UREA NITROGEN 10 mg/dL (7-18); CALCIUM 9.3 MG/DL (8.5-10.1); CARBON DIOXIDE 28 MMOL/L (21-32); CHLORIDE 102 MMOL/L (98-107); CREATININE 0.8 MG/DL (0.55-1.30); POTASSIUM 3.2 MMOL/L (3.5-5.1); SODIUM 139 MMOL/L (136-145)
--- NOTE | 2019-12-19 12:47 | Diagnostic Imaging Report ---
Procedure: XRAY Chest 1v Reason for study: Chest pain Comparison films: 08/26/2019. FINDINGS: A single one view chest is obtained. Vascularity is normal. The lung crockett are clear bilaterally. Cardiac and mediastinal silhouette are within normal limits. CP angles are sharp. The bony thorax appear unremarkable. IMPRESSION: NO ACUTE CARDIOPULMONARY DISEASE.
[2019-12-19 12:50] LABS: ALANINE AMINOTRANSFERASE 19 U/L (12-78); ALBUMIN 3.2 G/DL (3.4-5.0); ALBUMIN/GLOBULIN RATIO 0.7 (1.0-2.7); ALKALINE PHOSPHATASE 74 U/L (46-116); ASPARTATE AMINO TRANSFERASE 17 U/L (15-37); BILIRUBIN,TOTAL 0.4 MG/DL (0.2-1.0)
--- NOTE | 2019-12-19 13:10 | NUR ---
ED Nurse Note: pt taken to CT on stable condition.
--- NOTE | 2019-12-19 14:58 | Diagnostic Imaging Report ---
EXAM: CT CTA Chest w Contrast CLINICAL HISTORY: Chest pain and shortness of breath. TECHNIQUE: CT angiogram of the pulmonary vasculature performed with IV contrast. 2-D and 3-D reformat images obtained. All CT scans at this facility are performed using dose modulation techniques as appropriate to a performed exam including the following: automated exposure control with adjustment of the mA and/or kV according to patient size. RADIATION DOSE: CTDIvol: 63.8 mGy DLP: 428.6 mGy-cm Dose information generated by the CT scanner is available in PACS. COMPARISON: None FINDINGS: There is a marginal opacification of the pulmonary vascularity. There is no central filling defects or thrombus identified. However the subsegmental and peripheral branches are not as well opacified particularly in the lower lobes and small peripheral emboli cannot be excluded. The aorta is normal in caliber and there is no intimal flap or dissection. There is no mediastinal mass or adenopathy. There are linear atelectasis left lung base. Limited views of the upper abdomen appear unremarkable. Thyroid appears enlarged but homogeneous. IMPRESSION: ONLY MARGINAL OPACIFICATION OF THE PULMONARY VASCULARITY. NO LARGE CENTRAL EMBOLISM IDENTIFIED BUT SMALL PERIPHERAL EMBOLI CANNOT BE EXCLUDED.
[2019-12-19 15:00] VITALS: BP 102/66
--- NOTE | 2019-12-19 15:20 | NUR ---
ED Nurse Note: pt still complains of chest pain, notified ERMD.
--- NOTE | 2019-12-19 15:30 | NUR ---
ED Nurse Note: Pt resting on bed, VSS, NAD noted, offered snacks.
[2019-12-19] MEDS ORDERED: Ketorolac 30mg Inj IV ONE (15:45)
[2019-12-19 16:21] VITALS: BP 113/73
[2019-12-19 18:40] VITALS: BP 111/68
--- NOTE | 2019-12-19 19:12 | NUR ---
ED Nurse Note: hand-off given to LEANDRA Allen.
--- NOTE | 2019-12-19 19:15 | NUR ---
ED Nurse Note: Report received from BRADEN Garcia RN
[2019-12-19] MEDS ORDERED: Miralax 17gm pkt ORAL PRN (19:30)
[2019-12-19] MEDS ORDERED: Nitroglycerin Subl 0.4mg tab SL PRN (19:30)
[2019-12-19] MEDS ORDERED: Albuterol/Ipratropium 3ml neb HHN PRN (19:30)
[2019-12-19] MEDS ORDERED: Enalaprilat 2.5mg/2ml Inj IV PRN (19:30)
[2019-12-19] MEDS ORDERED: dilTIAZem HCl 25mg/5ml Inj IV PRN (19:30)
--- NOTE | 2019-12-19 20:20 | NUR ---
NURSE NOTES: Received report from ED from Joe Reyez RN. Patient was transferred to the bed in room 221-2 and safely accompanied / transferred by LEANDRA Allen. Belongings were all accounted for with RN and patient present. 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 Patient in stable condition, IV site on left antecubital 20g intact, no redness, no leaking, no tenderness, saline locked. Cardiac leads in place, equipment monitor phototypesetting working, bed in lowest and locked position, bed alarm activated, yellow socks on, call light within reach. Will continue to actively monitor.
--- NOTE | 2019-12-19 20:20 | NUR ---
TRANSFER TO FLOOR: Patient transferred to TELE at rm 221-2 via gurney with security monitor accompanied by RN and behavioral services tech. Belongings and medications given to RN on duty. Patient transferred safely and endorsed to RN.
[2019-12-19] MEDS ORDERED: Xarelto 10mg tab ORAL SCH (21:00)
--- NOTE | 2019-12-19 21:55 | NUR ---
NURSE NOTES: Patient complaining of chest pain 7/10 on a 0 - 10 scale, non-radiating, pressure pain and patient is uncomfortable. Notified Dr. Lieberman, will continue to remain with patient. Awaiting doctors orders.
--- NOTE | 2019-12-19 22:17 | NUR ---
NURSE NOTES: Dr. Lieberman responded and gave orders for morphine 2 mg IV q6hrs PRN for pain.
[2019-12-19] MEDS ORDERED: Morphine Sulfate 2mg/ml Inj(IV/IM USE ONLY) IVP PRN (22:30)
[2019-12-20] VITALS: BP 100/64
--- NOTE | 2019-12-20 00:18 | NUR ---
NURSE NOTES: Patient states, "i am comfortable and am feeling no pain at the moment."
--- NOTE | 2019-12-20 02:32 | NUR ---
NURSE NOTES: Received Dr. Lieberman's order for potassium chloride 40 mEq x1.
--- NOTE | 2019-12-20 02:46 | NUR ---
NURSE NOTES: Spoke to Windy, pharmacist at [facility]. She verified Dr. Lieberman's order for potassium replacement. Noted and will carry out.
[2019-12-20] MEDS ORDERED: Sodium Chloride for KCL Premix X 4hrs IV SCH (03:00)
[2019-12-20 04:00] VITALS: BP 97/64
--- NOTE | 2019-12-20 04:20 | NUR ---
NURSE NOTES: Patient is complaining of "unbearable pain" due to prescribed potassium 10mEq IV infusion. Stopped IV infusion and checked right 20g antecubital IV site. IV is patent, intact, flushing well, with blood return, no signs of infiltration / extravasation, no redness, no leaking. However, patient repeatedly refused despite explaining the risks and benefits of the medication.
--- NOTE | 2019-12-20 05:07 | NUR ---
NURSE NOTES: Patient continues to refuse prescribed potassium chloride IV, despite explanations of risks and benefits to the medication. Patient states that she is not able to tolerate the medication.
--- NOTE | 2019-12-20 06:30 | NUR ---
NURSE NOTES: Notified Dr. Lieberman regarding patient's refusal of the prescribed potassium IV infusion. Awaiting response. Patient in stable condition, no acute signs of distress noted.
[2019-12-20 06:37] LABS: INR 1.2 (0.9-1.1)
[2019-12-20 06:55] LABS: BASOPHILS % (AUTO) 1.2 % (0.0-2.0); EOSINOPHILS % (AUTO) 1.8 % (0.0-3.0); HEMATOCRIT 38.8 % (37.0-47.0); HEMOGLOBIN 12.4 G/DL (12.0-16.0); LYMPHOCYTES % (AUTO) 35.4 % (20.0-45.0); MEAN CORPUSCULAR VOLUME 89 FL (80-99); MONOCYTES % (AUTO) 6.4 % (1.0-10.0); NEUTROPHILS % (AUTO) 55.2 % (45.0-75.0); PLATELET COUNT 347 K/UL (150-450); RED BLOOD COUNT 4.35 M/UL (4.20-5.40); RED CELL DISTRIBUTION WIDTH 15.9 % (11.6-14.8); WHITE BLOOD COUNT 8.8 K/UL (4.8-10.8)
[2019-12-20 07:26] LABS: CHOLESTEROL 163 MG/DL (< 200); HDL CHOLESTEROL 45 MG/DL (40-60); TRIGLYCERIDES 87 MG/DL (30-150)
--- NOTE | 2019-12-20 07:45 | NUR ---
HAND-OFF: Report given to LEANDRA Quick. Plan of care endorsed. Patient in stable condition. Cardiac leads in place, nurse monitoring working, bed alarm activated, bed in lowest and locked position. Patient alert and oriented x4.
--- NOTE | 2019-12-20 07:46 | NUR ---
NURSE NOTES: Received patient in bed awake. No SOB or acute distress. IV line intact. HOB elevated. Bed locked in lowest position. Call light within reach. Patient refused potassium IV as per night RN, Dr Lieberman aware, still awaiting response. Patient requesting potassium orally. Will continue plan of care.
[2019-12-20 08:00] VITALS: BP 107/74
--- NOTE | 2019-12-20 08:53 | NUR ---
NURSE NOTES: Dr Lieberman made aware of patient's request for PO potassium, awaiting response. Addendum: 12/20/19 at 1258 by Ynes Blackwell RN Orders given for potassium PO
[2019-12-20] MEDS ORDERED: Aspirin Baby 81mg ORAL SCH (09:00)
--- NOTE | 2019-12-20 09:38 | NUR ---
CASE MANAGEMENT: INITIAL REVIEW 49YR OLD FEMALE FROM HOME CC:CHEST PAIN PMH: PULMONARY EMBOLISM SI:CHEST PAIN 98.1 83 22 102/66 98% ON RA K+3.2 ALB 3.2 PT 11.7 IS:IVF NS BOLUS X1 IV TORADOL X1 NTG Q5MIN IV ZOFRAN Q6HR/PRN XARELTO PO QHS IV MORPHINE SULFATE XRAY Chest 1v-NO ACUTE CARDIOPULMONARY DISEASE CTA Chest w Contrast-ONLY MARGINAL OPACIFICATION OF THE PULMONARY VASCULARITY. NO LARGE CENTRAL EMBOLISM IDENTIFIED BUT SMALL PERIPHERAL EMBOLI CANNOT BE EXCLUDED. \: 2E TELE UNIT PLAN: CONTINUOUS SUPERVISOR F[employer] EQU[employer]MENT MAINTENANCE ECHO CARDIOGRAM CASE MANAGEMENT: REVIEW 12/20/19 PMH: PULMONARY EMBOLISM SI:CHEST PAIN 97.7 82 18 107/74 97% ON RA PT/INR 13.5/1.2 IS:IVF NS BOLUS X1 NORVASC PO QD NTG Q5MIN IV ZOFRAN Q6HR/PRN XARELTO PO QHS IV MORPHINE SULFATE ASA PO QD \: 2E TELE UNIT PLAN: CARDIO CONSULT AND TO REVIEW
--- NOTE | 2019-12-20 09:45 | NUR ---
CASE MANAGEMENT:REVIEW 49 YR OLD FEMALE WALKED IN TO ER CC: CHEST PAIN PMH: H/O PULMONARY EMBOLI AND DVT SI: CHEST PAIN 98.1 98 18 129/78 98% ON RA TROPONIN(-) X2 K-3.2 INR=1.1 IS:1L NS BOLUS NTG SL IV TORADOL CTA CHEST CT CHEST CHEST XRAY : TO TELEMETRY UNIT IS: NORVASC PO QD ASA PO QD K-DUR PO X1 XARELTO PO QHS IV MORPHINE Q6HRS PRN DCP: FROM HOME
--- NOTE | 2019-12-20 10:38 | NUR ---
*-* INSURANCE *-* ALL CLINICALS AND REVIEWS HAVE BEEN FAXED TO: [facility] P: [phone] F: [phone] Addendum: 12/20/19 at 1039 by DEMAR DANIELLE CM AUTH#[id number]
[2019-12-20 11:40] VITALS: BP 106/76
[2019-12-20] MEDS ORDERED: Sucralfate 1gm tab ORAL SCH (13:15)
--- NOTE | 2019-12-20 13:31 | Consultation ---
History of Present Illness General Date patient seen: Dec 20, 2019 Chief Complaint: Chest Pain Present Illness HPI 49-year-old female history of Protein S deficiency, pulmonary embolism, GERD presented to ER with right-sided chest pain. The pain has been pressure-like constant no aggravating or alleviating factors severity is moderate. Her EKG didn't show any st changes and her troponin negative. A CTA of pulmonary artery ruled out large PE. Meanwhile echo is also done which is unremarkable without any sign of right sided strain. Pt take Omeprazole at home for her GERD. Allergies: Coded Allergies: PENICILLINS (Verified Allergy, Unknown, 06/11/16) Medication History Scheduled Amlodipine Besylate (Norvasc), 5 MG ORAL DAILY, (Reported) Cholecalciferol (Vitamin D3)* (Vitamin D*), 1,000 UNIT ORAL DAILY, (Reported) Losartan/Hydrochlorothiazide (Losartan-Hctz 50-12.5 Mg Tab), 1 TAB ORAL DAILY, ( Reported) Omeprazole (Omeprazole), 20 MG ORAL DAILY, (Reported) Rivaroxaban (Xarelto*), 20 MG ORAL BEDTIME, (Reported) Scheduled PRN Hydrocodone Bit/Acetaminophen 5-325* ([place] 5-325*), 1 TAB ORAL Q6H PRN for For Pain Hydrocodone/Acetaminophen 5-325* (Hydrocodone/Acetaminophen 5-325*), 1 TAB ORAL Q6H PRN for For Pain Ondansetron Odt* (Zofran Odt*), 4 MG ORAL Q6H PRN for Nausea & Vomiting Discontinued Medications Enoxaparin* (Lovenox*), 150 MG SUBQ DAILY, (Reported) Discontinued Reason: Pt stopped taking med Enoxaparin* (Lovenox*), 150 MG SUBQ DAILY, (Reported) Discontinued Reason: Pt stopped taking med Patient History Healthcare decision maker Resuscitation status Advanced Directive on File Past Medical/Surgical History Past Medical/Surgical History: (1) Protein S deficiency (2) Hypercoagulable state (3) HTN (hypertension) (4) Mitral valve prolapse Review of Systems All Other Systems: negative except mentioned in HPI Physical Exam General Appearance: WD/WN, no apparent distress Lines, tubes and drains: peripheral HEENT: normocephalic, atraumatic Neck: non-tender, normal alignment Respiratory/Chest: chest wall non-tender, lungs clear Breasts: no masses Cardiovascular/Chest: normal peripheral pulses, normal rate Abdomen: normal bowel sounds, non tender Genitourinary/Rectal: normal rectal exam Extremities: normal range of motion Last 24 Hour Vital Signs Date Time Temp Pulse Resp B/P (MAP) Pulse Ox O2 Delivery O2 Flow Rate FiO2 12/20/19 12:00 89 12/20/19 11:40 97.5 100 20 106/76 (86) 95 12/20/19 09:00 Room Air 12/20/19 08:50 82 107/74 12/20/19 08:00 81 12/20/19 08:00 97.7 82 18 107/74 (85) 97 12/20/19 04:00 82 12/20/19 04:00 98.1 67 19 97/64 (75) 99 12/20/19 00:00 98.8 77 19 100/64 (76) 97 12/20/19 00:00 69 12/19/19 21:33 Room Air 12/19/19 20:23 99.0 82 18 136/82 99 Room Air 82 12/19/19 20:20 73 12/19/19 20:06 125/75 12/19/19 18:40 98.1 76 15 111/68 98 Room Air 12/19/19 16:21 98.1 73 20 113/73 98 Room Air 84 12/19/19 16:09 98.1 12/19/19 15:00 98.1 83 22 102/66 98 Room Air Intake and Output 12/19/19 12/20/19 19:00 07:00 Output Total 0 ml Balance 0 ml Output Urine Total 0 ml Laboratory Tests Test 12/19/19 20:45 12/20/19 05:35 Troponin I 0.000 ng/mL (0.000-0.056) 0.000 ng/mL (0.000-0.056) White Blood Count 8.8 K/UL (4.8-10.8) Red Blood Count 4.35 M/UL (4.20-5.40) Hemoglobin 12.4 G/DL (12.0-16.0) Hematocrit 38.8 % (37.0-47.0) Mean Corpuscular Volume 89 FL (80-99) Mean Corpuscular Hemoglobin 28.4 PG (27.0-31.0) Mean Corpuscular Hemoglobin Concent 31.9 G/DL (32.0-36.0) L Red Cell Distribution Width 15.9 % (11.6-14.8) H Platelet Count 347 K/UL (150-450) Mean Platelet Volume 5.8 FL (6.5-10.1) L Neutrophils (%) (Auto) 55.2 % (45.0-75.0) Lymphocytes (%) (Auto) 35.4 % (20.0-45.0) Monocytes (%) (Auto) 6.4 % (1.0-10.0) Eosinophils (%) (Auto) 1.8 % (0.0-3.0) Basophils (%) (Auto) 1.2 % (0.0-2.0) Prothrombin Time 13.5 SEC (9.30-11.50) H Prothromb Time International Ratio 1.2 (0.9-1.1) H Activated Partial Thromboplast Time 33 SEC (23-33) C-Reactive Protein, Quantitative 1.9 mg/dL (0.00-0.90) H Triglycerides Level 87 MG/DL (30-150) Cholesterol Level 163 MG/DL (< 200) LDL Cholesterol 101 mg/dL (<100) H HDL Cholesterol 45 MG/DL (40-60) Cholesterol/HDL Ratio 3.6 (3.3-4.4) Thyroid Stimulating Hormone (TSH) 1.282 uiU/mL (0.358-3.740) Height (Feet): 5 Height (Inches): 5.00 Weight (Pounds): 225 Medications Current Medications Medications (Trade) Dose Ordered Sig/Jax Route PRN Reason Start Time Stop Time Status Last Admin Dose Admin Acetaminophen (Tylenol) 650 mg Q4H PRN ORAL FEVER 12/19/19 19:30 01/18/20 19:29 Albuterol/ Ipratropium (Albuterol/ Ipratropium) 3 ml Q4H PRN HHN Shortness of Breath 12/19/19 19:30 12/24/19 19:29 Amlodipine Besylate (Norvasc) 5 mg DAILY ORAL 12/20/19 09:00 01/19/20 08:59 12/20/19 08:50 Aspirin (ASA) 162 mg DAILY ORAL 12/20/19 09:00 8/10/20 08:59 12/20/19 08:50 Diltiazem HCl (Cardizem) 10 mg Q1H PRN IV heart rate more than 120, 12/19/19 19:30 01/18/20 19:29 Enalaprilat (Vasotec) 2.5 mg Q6H PRN IV sbp more than 160 12/19/19 19:30 01/18/20 19:29 Gabapentin (Neurontin) 600 mg THREE TIMES A DAY ORAL 12/20/19 13:00 01/19/20 12:59 12/20/19 12:32 Iohexol (Omnipaque 350 100ml) 100 ml NOW PRN INJ Radiology Procedure 12/19/19 12:15 12/21/19 12:07 Morphine Sulfate (Morphine Sulfate) 2 mg Q6H PRN IVP For Pain 12/19/19 22:30 12/26/19 22:29 12/19/19 22:36 Nitroglycerin (Ntg) 0.4 mg Q5M PRN SL Prn Chest Pain 12/19/19 19:30 01/18/20 19:29 12/19/19 20:06 Ondansetron HCl (Zofran) 4 mg Q6H PRN IVP Nausea & Vomiting 12/19/19 19:30 01/18/20 19:29 12/19/19 22:46 Polyethylene Glycol (Miralax) 17 gm DAILYPRN PRN ORAL Constipation 12/19/19 19:30 01/18/20 19:29 Rivaroxaban (Xarelto) 20 mg BEDTIME ORAL 12/19/19 21:00 03/18/20 20:59 12/19/19 21:50 Temazepam (Restoril) 15 mg HSPRN PRN ORAL Insomnia 12/19/19 19:30 12/26/19 19:29 Assessment/Plan Problem List: (1) Atypical chest pain ICD Codes: R07.89 - Other chest pain SNOMED: 573083021 (2) Hypercoagulable state ICD Codes: D68.59 - Other primary thrombophilia SNOMED: 49780696 (3) Protein S deficiency ICD Codes: D68.59 - Other primary thrombophilia SNOMED: 4697900 (4) Mitral valve prolapse ICD Codes: I34.1 - Nonrheumatic mitral (valve) prolapse SNOMED: 411714892 (5) History of pulmonary embolism ICD Codes: Z86.711 - Personal history of pulmonary embolism SNOMED: 752770081 Assessment/Plan: pts pain most like is secondary to GERD She is taking her Xarelto, Echo reviewed, which was negative. all troponin are negative. Efrain Lieberman MD Dec 20, 2019 13:31
--- NOTE | 2019-12-20 14:42 | History & Physical ---
History and Physical History & Physicial Juma Jimenez MD Dec 20, 2019 14:42
--- NOTE | 2019-12-20 15:45 | NUR ---
NURSE NOTES: Requesting prescription for sucralfate for home medication, Dr Lieberman informed Dr Jimenez. Addendum: 12/20/19 at 1813 by Ynes Blackwell RN Patient will contact Dr Jimenez for sucralfate prescription.
--- NOTE | 2019-12-20 18:14 | NUR ---
NURSE NOTES: Patient discharged to home in stable condition. IV line removed. ID band removed. Tele box removed. Discharge instructions given, verbalized understanding. No new skin issues noted. Belongings accounted for. Wheeled down to lobby by nurse and transported by taxi using taxi voucher.
--- NOTE | 2019-12-20 22:15 | History and Physical Report ---
DATE OF ADMISSION: 12/19/2019 CHIEF COMPLAINT: Chest pain. HISTORY OF PRESENT ILLNESS: This is a 49-year-old female with past medical history significant for protein S deficiency with history of recurrent DVT and PE, presently on Xarelto, history of hypertension, fibroma, history of osteoarthritis of the back and knees, who presented to the emergency department complaining about chest pain. Patient stated the chest pain is pressure-like, constant, not aggravating, not elevating factor, severe . EKG was done in the ER. No acute distress was noted and CTA of the chest noted to be only marginal opacification of the pulmonary vasculature. No large central embolism identified, but a small peripheral embolism cannot be excluded. The patient denies any chest pain or shortness of breath at this time. Shortly after initial evaluation in the emergency, patient was admitted to the hospital with atypical chest pain, less likely recurrent PE. PAST MEDICAL HISTORY/PAST SURGICAL HISTORY: As above history of hypertension, protein S deficiency, history of DVT and PE, fibroma, hypertension, osteoarthritis of knees and back. MEDICATIONS AT HOME: Please refer to medication reconciliation. ALLERGIES: Allergic to penicillin. FAMILY HISTORY: Both parents has a history of high blood pressure. SOCIAL HISTORY: Denies any smoking. Socially drinks. She smokes marijuana occasionally. She is retired. She is disabled due to the back pain. REVIEW OF SYSTEMS: Mostly as above. Denies any fever or chills. Denies any nausea or vomiting. Denies any hemoptysis or hematochezia. PHYSICAL EXAMINATION: VITAL SIGNS: Temperature 98.1, pulse of 83, respirations 22, blood pressure 102/66. GENERAL: Patient is awake, responsive, no acute distress. HEAD AND NECK: Pupils are equal and reactive to light. Extraocular movements intact. Neck was supple. No JVD. LUNGS: Clear. No wheezing or rales. HEART: S1, S2. Regular rhythm. No murmur or gallops. ABDOMEN: Soft, nondistended, nontender. Morbidly obese. EXTREMITIES: No cyanosis, clubbing, or edema. NEUROLOGIC: Cranial nerves II through XII grossly intact. Motor strength is 5/5 in all extremities. Gait is intact. RECTAL/GENITOURINARY: Refused and deferred. PSYCHIATRIC: Mood and affect is intact. LABORATORY DATA: On admission WBC 9.3, hemoglobin 13, hematocrit 42, platelets is 399. Sodium 139, potassium 3.2, chloride 102, bicarbonate 28, BUN 10, creatinine 0.8. First, second, and third troponin 0.00. CRP of 1.9. Total protein 7.5. PT of 11, INR 1.1, PTT of 30. UA and beta-hCG is negative. Chest x-ray, no acute cardiopulmonary disease. ASSESSMENT: 1. Right-sided chest pain, less likely acute coronary syndrome, less likely recurrent PE. 2. Hypertension. 3. Protein S deficiency with recurrent DVT and PE. 4. Morbid obesity. 5. Hypertension. 6. Osteoarthritis of the back and knee. PLAN: Admit patient to monitored unit. We will follow up with Dr. Lieberman, Pulmonary Critical Care consultation. Patient is already on DVT with Xarelto therapy. Code status is Full Code. We will monitor laboratory closely. If the patient's status improves, consider discharge home to be follow up with her primary doctor as outpatient. Juma Jimenez M.D. DR: ARIADNE JOB#: [id number] CC:
--- NOTE | 2019-12-22 10:50 | Discharge Summary ---
Discharge Summary Discharge Summary _ DATE OF ADMISSION: 12/19/2019 DATE OF DISCHARGE: 12/20/2019 ADMITTING MD: Dr. Juma Jimenez DISCHARGED BY: Dr. Efrain Lieberman CONSULTANTS: Dr. Efrain Lieberman BRIEF HOSPITAL COURSE: Patient is a 49-year-old -[place] female, with past medical history significant for protein S deficiency with history of recurrent DVT and PE, presently on Xarelto, history of hypertension, fibroma, osteoarthritis of low back and knees, presented to the emergency department complaining of chest pain. Chest pain was described to be pressure-like, constant, with no aggravating or relieving factor, with moderate severity. She also noticed shortness of breath although denied any dyspnea on exertion, no diaphoresis, no nausea, no vomiting, no abdominal pain. Upon evaluation at the ED, vital signs were stable. Blood work did not show any leukocytosis. Hemoglobin and hematocrit were stable. Potassium was low at 3.2. Chloride 102. Troponin negative. proBNP 10. hCG negative. EKG showed normal sinus rhythm at a rate of [address] elevation. Chest x- ray was negative. CTA chest showed marginal opacification of the pulmonary vascularity. No large central embolism but small peripheral emboli cannot be excluded. No bed was available at [facility]. Patient was then admitted to telemetry. She was placed on manager cardiac cath. Cardiac enzymes were monitored. She was continued on Xarelto. Potassium was repleted. She underwent trans-thoracic echocardiogram. Echocardiogram was unremarkable without any sign of right-sided strain. Cardiac enzymes were negative x 3. Chest pain most likely secondary to GERD. She was given Protonix and Carafate. Patient was eventually discharged home. Follow-up with PCP. FINAL DIAGNOSES: Chest pain, less likely acute coronary syndrome, less likely recurrent PE, more likely secondary to GERD Hypertension Protein S deficiency with history of recurrent DVT and PE Morbid obesity Hypertension Osteoarthritis of back DISPOSITION: Patient was discharged home. DISCHARGE MEDICATIONS: Refer to Discharge Medication List. DISCHARGE INSTRUCTIONS: Follow-up with PCP in a week. I have been assigned to complete a discharge summary on this account, I was not involved with the patient's management.--MAYDA Quintero Jacqueline Robles NP Dec 22, 2019 10:50
--- NOTE | 2019-12-23 13:10 | NUR ---
*-* INSURANCE *-* DISCHARGE SUMMARY HAS BEEN FAXED TO: [facility] P: [phone] F: [phone] AUTH#[id number]
== END 2019-12-20 18:15 | disposition home or self-care (01) | DRG 243 ==
LOC: EMR 12:27 → 2E 14:52 → EDBEDREQ 19:00
DX: K21.9 Gastro-esophageal reflux disease without esophagitis (principal); I10 Essential (primary) hypertension; D68.59 Other primary thrombophilia; Z86.711 Personal history of pulmonary embolism; Z86.718 Personal history of other venous thrombosis and embolism; E66.01 Morbid (severe) obesity due to excess calories; M17.0 Bilateral primary osteoarthritis of knee; M47.9 Spondylosis, unspecified; Z88.0 Allergy status to penicillin; I34.1 Nonrheumatic mitral (valve) prolapse; Z79.01 Long term (current) use of anticoagulants
CPT/HCPCS: 36415; 71045; 71275; 80053; 80061; 81025; 83690; 83880; 84443; 84484; 84702; 85025; 85610; 85730; 86140; 93005; 93306; 96361; 96374; 99285; J2405; J7030; J8499

== ENCOUNTER 2020-08-04 23:13 | Emergency (ER) | payer MEDICAID ==
[~2020-08-04] VITALS: Ht 165.1 cm; Wt 108.9 kg
[~2020-08-04 23:13] MED LIST changes: +XARELTO10 MG ORAL
--- NOTE | 2020-08-04 23:40 | NUR ---
ED Nurse Note: Patient came in the ED complaining of right calf pain. patient has hx of DVT, is on xerelto 20mg daily, has not taking med for the past 5 days, because she ran out of med.
--- NOTE | 2020-08-04 23:42 | Emergency Room Report ---
History of Present Illness General Chief Complaint: Pain Source: Patient Present Illness HPI Patient is a 50-year-old female presents for increased right-sided calf pain. Reports having onset of symptoms over the past few days. Prior history of protein c deficiency reportedly. Reports having no recent trauma. States that she been having increased swelling and discomfort to the right lower extremity. Previous history of DVT and PE. Had run out of [employer]. Patient denies any other current complaints. Prior history of arthritis. Allergies: Coded Allergies: PENICILLINS (Verified Allergy, Unknown, 06/11/16) COVID-19 Screening Contact w/high risk pt: No Recent Travel to affected area: No Experienced COVID-19 symptoms?: No COVID-19 Testing performed DISTRICT EXTENSION SERVICE AGENT: No Patient History Past Medical History: see triage record Last Menstrual Period: unk Reviewed Nursing Documentation: PMH: Agreed; PSxH: Agreed Nursing Documentation-PMH Hx Cardiac Problems: Yes - Acute Coronary Syndrome Hx Hypertension: Yes Hx Cancer: No Hx Gastrointestinal Problems: Yes Hx Neurological Problems: No Hx Spinal Cord Injury: Yes - Slipped disc (unspecified) Review of Systems All Other Systems: negative except mentioned in HPI Physical Exam Vital Signs Date Time Temp Pulse Resp B/P (MAP) Pulse Ox O2 Delivery O2 Flow Rate FiO2 08/04/20 23:21 97.9 93 18 106/71 (83) 96 Room Air Sp02 EP Interpretation: reviewed, normal General Appearance: normal inspection, well appearing, no apparent distress, alert, GCS 15 Head: atraumatic ENT: normal ENT inspection, hearing grossly normal, normal voice Neck: normal inspection, full range of motion, supple, no bony tend Respiratory: normal inspection, lungs clear, normal breath sounds, no respiratory distress, no retraction, no wheezing Cardiovascular #1: regular rate, rhythm, no edema Gastrointestinal: normal inspection, normal bowel sounds, non tender, soft, no guarding, no hernia Genitourinary: no CVA tenderness Musculoskeletal: normal inspection, back normal, normal range of motion Neurologic: alert, responsive, speech normal, normal inspection Psychiatric: normal inspection, judgement/insight normal, mood/affect normal Medical Decision Making Diagnostic Impression: Primary Impression: Protein S deficiency Additional Impression: Hypercoagulable state ER Course Presents for increased leg pain. Differential diagnosis include was not limited to deep venous thrombosis, cellulitis, calf strain among others. Patient has a benign exam and does not appear to require any laboratory testing at this time. Duplex ultrasound was ordered and did not show any evidence of deep venous thrombosis. Patient had prior history of hypercoagulable state and was given prescription for Xarelto. She was advised to follow-up with her step down specialist. She is advised to return if she had any concerns. This medical record is generated with [employer] stakeholder manager software. There may be some stakeholder manager discrepancies related to use of this software Last Vital Signs Date Time Temp Pulse Resp B/P (MAP) Pulse Ox O2 Delivery O2 Flow Rate FiO2 08/04/20 23:21 97.9 93 18 106/71 (83) 96 Room Air Status: improved Disposition: HOME, SELF-CARE Condition: Stable Scripts Rivaroxaban (XARELTO) 20 Mg Tablet 20 MG ORAL DAILY for Anticoagulant for 30 Days, #30 MG 0 Refills Prov: Wojciech Byers MD 08/05/20 Referrals: NON PHYSICIAN (PCP) Wojciech Byers MD Aug 04, 2020 23:42
[2020-08-04] MEDS ORDERED: Acetaminophen 500mg (ES) tab ORAL ONE (23:45)
[2020-08-04] MEDS ORDERED: Xarelto 10mg tab ORAL ONE (23:45)
[2020-08-04 23:58] VITALS: BP 106/71
[2020-08-05] MEDS ORDERED: XARELTO20 MG ORAL (00:35)
--- NOTE | 2020-08-05 00:40 | NUR ---
ER DISCHARGE NOTE: Patient is cleared to be discharged per ERMD, pt is aox4, on room air, with stable vital signs. pt was given dc and prescription instructions, pt was able to verbalize understanding, pt id band removed. pt is able to ambulate with steady gait with a cane. pt took all belongings.
--- NOTE | 2020-08-05 01:02 | Diagnostic Imaging Report ---
EXAM: US Duplex Right Lower Extremity Veins CLINICAL HISTORY: DVT TECHNIQUE: Real-time duplex ultrasound scan of the right lower extremity veins integrating B-mode two-dimensional vascular structure, Doppler spectral analysis, color flow Doppler imaging and compression. COMPARISON: No relevant prior studies available. FINDINGS: Deep veins: No DVT in the visualized common femoral, femoral, proximal deep femoral or popliteal veins. The veins demonstrate normal color flow, are normally compressible, with normal phasic flow and/or augmentation response. Superficial veins: No thrombus in the visualized great saphenous vein. Soft tissues: No popliteal cyst. IMPRESSION: No DVT.
== END 2020-08-05 00:40 | disposition home or self-care (01) ==
LOC: EMR 23:40
DX: D68.59 Other primary thrombophilia (principal); I24.9 Acute ischemic heart disease, unspecified; I10 Essential (primary) hypertension; Z86.718 Personal history of other venous thrombosis and embolism; Z88.0 Allergy status to penicillin; Z79.01 Long term (current) use of anticoagulants
CPT/HCPCS: 93971; Z7502; 99283